=== PATIENT | male | born 1995 | race Caucasian/White ===

== ENCOUNTER 2017-10-03 15:20 | Emergency (ER) | payer MEDICAID ==
[2017-10-03] MEDS ORDERED: Iopamidol 755 Mg/ML 100 ML Bottle IV ONE (16:26)
[2017-10-03] MEDS ORDERED: Diatrizoate Meglumine/Diatrizoate Sodium 37% 30 ML Bottle PO ONE (16:26)
--- NOTE | 2017-10-04 08:27 | CT ---
INDICATION: Periumbilical abdominal pain times [address] PELVIS WITH IV CONTRAST: Spiral 2.5 mm axial sections were obtained through the abdomen and pelvis with 80 mL Isovue 370 at 2 mL/second with 100 second delay, with sagittal and coronal reconstructions 10/03/2017 - no comparisons. Total exam DLP = 431.33 mGy-cm. An active infiltrate or effusion was not identified in the lower lung eller and pleural spaces visualized. The gallbladder appeared normal with no calculi demonstrated. No liver, spleen , pancreatic, renal, or adrenal abnormalities were seen. No retroperitoneal masses were seen. The appendix is not definitely visualized but appears to be normal on axial images #148 through #152. There appears to be thickening of the wall of the terminal ileum and the sigmoid colon, as well as the descending colon and distal transverse colon. A process such as Crohns disease would be a consideration with this appearance. Findings should be correlated clinically in that regard. No additional organomegaly, mass lesions, or free fluid collections were identified in the abdomen or pelvis. The prostate was slightly prominent in size, measuring approximately 42 mm maximally x 29 mm. Minimal impingement on the floor of the bladder is noted. IMPRESSION: 1. Suggestion of thickening of the wall of the terminal ileum and portions of the left colon, raising question of a process such as Crohns disease. This should be correlated clinically. 2. Question minimal degree of prostate enlargement. Report was called to Dr. Rubio at 1753 hours on 10/03/2017. [facility]
--- NOTE | 2017-10-05 11:58 | ER ---
DATE SEEN: 10/03/2017 TIME SEEN: The patient was seen on arrival at 1530 hours. HISTORY OF PRESENT ILLNESS: This 22-year-old notes he has IBSm irritable bowel syndrome with variable diarrhea and constipation. Yesterday, with onset of abdominal pain at approximately 2300 hours. It is periumbilical, mid abdomen, and had an episode of diararhea yesterday. The patient notes he felt constipated. He had the onset of abdominal discomfort between 1800 hours and 2000 hours. He felt hungry, consequently, he had this "empty food feeling" and started eating. He has been traveling with his grandmother from 1800 hours to 2000 hours to home, and then had stopped to eat something and bought turkey, but did not eat the turkey. By the time they got home, between 2000 hours and 2100 hours, unloaded the car and unpacked things, and helped his grandmother bring things into home. He had a gradual increase in his abdominal discomfort and had somewhat a restless night. He felt he was constipated and at 0800 hours today. Then the grandmother gave him a tablet of Linzess which resulted 8 to 10 stools which latter 50% were watery diarrhea. He has persistent abdominal discomfort in the mid epigastric area. He denies vomiting, fever, blood in the stool, or black tarry stools. He has had watery stools after he had Linzess. No previous surgery. He is thought to have some gluten intolerance, it has never been confirmed. He denies back pain. No history of kidney stones. No history of hernias. The patient notes his abdominal discomfort is 6 to 7/10 in intensity presently. It has gone down slightly since he has arrived. MEDICATIONS: None. ALLERGIES: None. PAST MEDICAL HISTORY: Otherwise negative, except for noted above. PHYSICAL EXAMINATION: VITAL SIGNS: Blood pressure 114/55, heart rate 79, respirations 18, oxygen saturation 100%, and temperature is 36.8 degrees centigrade. The patient is 67.132 kg with a BMI of 23.2 kg/m2. GENERAL: The patient is in moderate discomfort. He is pleasant, well dressed, appropriate, and alert, young man in moderate discomfort. He feels discomfort is less than what was during the night. HEENT/NECK: Mucosa is semi-dry. Pharynx, no erythema. No cervical adenopathy. No thyromegaly. TMs are negative. LUNGS: Clear without rales, rhonchi, or wheezes. HEART: S1 and S2. No tachycardia. ABDOMEN: Generalized abdominal discomfort most of it superior to the right and left of the umbilicus, but not right upper quadrant, left upper quadrant, or right lower quadrant or left lower quadrant. Mild voluntary guarding. No heel tap rebound. No rebound demonstrated with abdominal exam. No CVA percussion tenderness. GENITALIA: Negative. No hernia demonstrated. EXTREMITIES: Lower extremities without edema. Deep tendon reflexes in upper and lower extremities are symmetrical 1+, normoactive. Cranial nerves II through XII are intact. Strength intact. Gait intact. WORKING DIAGNOSIS: Irritable bowel syndrome. EMERGENCY ROOM COURSE: Etiology for pain is indeterminate otherwise. Associated IBS. He has been given Linzess. This resulted in diarrhea, and the diarrhea was so extensive, it magnified his abdominal pain as opposed to decrease the abdominal pain. It was his thought that he had constipation with IBS and needed something to clear his stools. I think his analysis was incorrect, and he has been having soft stools and not hard stools more recently. DIAGNOSTIC STUDIES: CT of the abdomen was performed because the status of the abdominal findings is indeterminate to rule out any potential inflammatory process. There was mild colonic wall thickening. No evidence for bowel obstruction. No evidence for appendicitis. LABORATORY FINDINGS: White count is normal 7800, PMNs 81, lymphs 13, monos 5, and platelets normal 248,000. Mild hypochromia. MCH was 27, otherwise, MCHC 33 and MCV borderline microcytosis with 81.9 MCV. Remainder of the complete metabolic panel is normal. Urinalysis is normal. ASSESSMENT: 1. Abdominal pain. 2. Abdominal pain secondary to irritable bowel syndrome. 3. Linzess-induced diarrhea in accentuation of abdominal pain. 4. Inappropriate use of Linzess, which magnified the patient's symptoms and caused diarrhea. PLAN: He did not have constipation. The patient was reassured. A 1000 mL normal saline flush. He went home with his grandmother, to gradually and progressively increase diet as tolerated. Follow up with doctor in a week. /[id number] CHYNA/LIBRADO DHALIWAL
== END 2017-10-03 19:00 | disposition home or self-care (01) ==
LOC: FB.ED 15:20
DX: K52.1 Toxic gastroenteritis and colitis (principal); T50.995A Adverse effect of other drugs, medicaments and biological substances, initial encounter; K58.9 Irritable bowel syndrome, unspecified
CPT/HCPCS: 36415; 74177; 80053; 81001; 83605; 85025; 99284; Q9963; Q9967